=== PATIENT | male | born 1985 | race Caucasian/White ===

== ENCOUNTER 2023-08-06 09:54 | Emergency (ER) | payer SELFPAY ==
[~2023-08-06] VITALS: Ht 170.2 cm; Wt 73.0 kg
[2023-08-06 10:07] VITALS: BP 128/67; TEMP 98.6; O2SAT 100
[2023-08-06] MEDS ORDERED: NAPR-1009 PO (10:28)
[2023-08-06] MEDS ORDERED: NAPROXEN 250 MG TABLET PO ONE (10:30)
[2023-08-06] MEDS ORDERED: NAPROXEN 250 MG TABLET ONE (10:41)
== END 2023-08-06 10:59 | disposition home or self-care (01) ==
LOC: ER 10:01
DX: S16.1XXA Strain of muscle, fascia and tendon at neck level, initial encounter (principal); X58.XXXA Exposure to other specified factors, initial encounter; Y93.89 Activity, other specified; Y92.89 Other specified places as the place of occurrence of the external cause; Y99.8 Other external cause status